=== PATIENT | male | born 1980 | race Caucasian/White ===

== ENCOUNTER 2025-03-12 22:21 | Emergency (ER) | payer OTHER, SELFPAY ==
[2025-03-12 22:27] VITALS: BP 143/87
--- NOTE | 2025-03-13 00:42 | ED.GENMED ---
History of Present Illness
General
Chief Complaint: Esophageal Problem
Source: patient
Exam Limitations: none
Time Seen by Provider: 03/13/25 00:35
Nursing documentation reviewed up to this point in time: agreed with
History of Present Illness
History of Present Illness:
Note:
CHIEF COMPLAINT(S)
Feeling of pill stuck in the throat.
HISTORY OF PRESENT ILLNESS
The patient is a 45-year-old male who reports a sensation of a gel cap pill feeling stuck in his throat since approximately 11:30 AM today. He describes it not as pain but rather as a discomforting sensation, marisol to feeling as though there is
something lodged in the throat. He has been able to eat and drink well despite this sensation. The patient mentions taking Nexium for his symptoms and has not experienced any breathing difficulties. For reassurance, he sought medical attention to
ensure nothing is obstructing his airway before sleeping. The plan is to provide reassurance, encourage food and liquid intake (water and crackers), and educate the patient on the likely irritation caused by ingestion of the pill.
MEDICATIONS
- Nexium (esomeprazole), dosage not specified.
PHYSICAL EXAM
- General: Alert, no acute distress.
- Respiratory: Respirations are non-labored.
PLAN
- Reassure the patient of the absence of airway obstruction.
- Encourage the patient to drink water and consume crackers to alleviate the discomfort.
- Advise continued use of Nexium as per current regimen.
- Provide symptomatic relief with a possible cocktail to ease the throat sensation if needed.
DIFFERENTIAL DIAGNOSIS
The Differential Diagnosis includes, in no particular order and is not limited to:
1. Pill-induced esophageal irritation
2. Esophageal stricture
3. Gastroesophageal reflux disease (GERD) exacerbation
4. Esophageal spasm
5. Foreign body in the esophagus
6. Esophagitis
7. Hiatal hernia
8. Psychogenic dysphagia
9. Esophageal motility disorder
10. Laryngopharyngeal reflux
Disposition:
SUMMARY OF ENCOUNTER
The patient is a 45-year-old male presenting with a sensation of a gel cap pill stuck in his throat. He has been able to eat and drink without difficulty since the sensation began. The patient drank water in the emergency department. He reports no
pain or breathing difficulties but seeks reassurance. He is currently taking omeprazole. He refused treatment with a GI cocktail (often referred to as a 'green grabber') for symptomatic relief. After assessment, he is found to be stable and without
acute distress, warranting discharge from the emergency department with a diagnosis of pill esophagitis.
DISPOSITION
Discharge.
ASSESSMENT
The patient likely has pill esophagitis causing the sensation of a foreign body in the throat.
PLAN
The patient is advised to continue eating and drinking normally to help alleviate the throat sensation. He is to continue his omeprazole therapy as instructed.
PATIENT EDUCATION AND COUNSELING
The patient was educated on the likely cause of the sensation being pill-induced esophageal irritation. He was reassured that it is generally not serious and should resolve with time and continued liquid and food intake.
FOLLOW-UP INSTRUCTIONS
Please follow up with primary care if symptoms persist or worsen.
MEDICATION RECONCILIATION
The patient is currently prescribed omeprazole.
MEDICAL DECISION MAKING
- Number and Complexity of Problems Addressed: Chronic conditions affecting care. Differential diagnosis includes pill-induced esophageal irritation, esophageal stricture, GERD exacerbation, esophageal spasm, foreign body in the esophagus,
esophagitis, hiatal hernia, psychogenic dysphagia, esophageal motility disorder, and laryngopharyngeal reflux.
DIAGNOSIS
- Pill Esophagitis (ICD-10: K22.82)
Phy Exam
Physical Exam
Physical Exam:
.
Course
Orders/Labs/Results
Orders:
Orders
03/12/25 22:30
Neck Soft Tissue [CR Soft Tissue Neck ] Urgent
Comment:
Reason For Exam: painful swallowing, feels like a pill is stuck
Vital Signs
Initial and Last Documented VS:
Initial Vital Signs
Temp Pulse Resp BP Pulse Ox
97.9 F 54 16 143/87 97
03/12/25 22:27 03/12/25 22:27 03/12/25 22:27 03/12/25 22:27 03/12/25 22:27
Last Documented Vital Signs
Temp Pulse Resp BP Pulse Ox
97.9 F 54 16 143/87 97
03/12/25 22:27 03/12/25 22:27 03/12/25 22:27 03/12/25 22:27 03/13/25 00:43
*Pulse Oximetry
SaO2: 97
Oxygen Mode of Delivery: Room air
Patient hypoxic: no
*Critical Care Note
Total Time (30-74mins, 75-104mins- exclusive of procedures): Not Applicable
ED Attending Note
-
Portions of this chart may have been created with voice recognition software.� Occasional wrong word or��sound alike� substitutions may have occurred due to the inherent limitations of voice recognition software.
Discharge Plan
Departure
Patient Disposition: Home (Routine Discharge)
Date of Disposition: 03/13/25
Time of Disposition: 00:43
Patient with high blood pressure during this ER visit?: Yes
Discharge Problem:
Pill esophagitis
Instructions: Esophagitis
Activity Restrictions/Additional Instructions:
Please continue to take your omeprazole.
Thank You for choosing [facility].
It was a pleasure meeting you and taking part in your care. We hope for your continued healing and wellness.
Please read discharge instructions in their entirety. However, they are for general education and may not describe your exact diagnosis at discharge. Information on your ER visit and medical conditions were discussed with you along with appropriate
follow up information...
If indicated, please take your medications as instructed and indicated on discharge paperwork.
Please schedule a follow up appointment as directed. Call to schedule an appointment
Please return to the emergency department with ANY change in, persisting, or worsening of symptoms. If any of your symptoms do not improve, or persist, or become more severe within 6-12 hours, please return to the emergency department for further
care.
Please return to the emergency department if you develop a headache, neck pain/stiffness, fever greater than 100.4F, chest pain, shortness of breath, persistent nausea, vomiting, slurred speech, difficulty walking, numbness/tingling, weakness, signs
of infection or any other symptoms that are worrisome to you.
If you have any questions or concerns please do not hesitate to call the Hospital at or E-mail me directly at [email or web address]
Interventions
Interventions:
*Risk Screen - Suicide Last Done: 03/13/25 01:20
*General Assessment Last Done: 03/13/25 01:20
*Neglect/Abuse Screening Last Done: 03/13/25 01:20
*ED- Fall Risk Assessment Last Done: 03/13/25 01:20
*ED COVID-19 Vaccine History Last Done: 03/13/25 01:20
*Nursing Disposition Last Done: 03/13/25 01:20
LB-Xrcntt-Mhnczwticb Assessment Last Done: 03/13/25 01:20
ED-EENT Assessment Last Done: 03/13/25 01:20
Discharge Date and Time
Discharge Date/Time: 03/13/25 01:21
Print Language: CAMEROONIAN
== END 2025-03-13 01:21 | disposition home or self-care (01) ==
LOC: EMR 22:21
PROVIDERS: EMERGENCY PHYSICIAN Student in an Organized Health Care Education/Training Program; FAMILY PHYSICIAN Family Medicine
DX: K20.90 Esophagitis, unspecified without bleeding (principal); R03.0 Elevated blood-pressure reading, without diagnosis of hypertension
CPT/HCPCS: 99283; 70360